=== PATIENT | male | born 1995 | race Caucasian/White ===

== ENCOUNTER 2017-02-21 02:19 | Emergency (ER) | payer OTHER ==
[2017-02-21 02:23] VITALS: BP 148/91
[2017-02-21] MEDS ORDERED: Lidocaine 2% EPI 1:200000 MPF* 20 ML VIAL ONE (02:41)
--- NOTE | 2017-02-21 02:51 | ED ---
Laceration/Wound HPI - HPI Summary HPI Summary: 21M presents with scalp laceration today. He was on a wooden swing that slipped out and hit head on the swing. denies any loc. mild headache. tetanus up to date. bleeding controlled. no nausea or vomiting. no dizziness or change in vision. - History of Current Complaint Stated Complaint: HEAD LAC Time Seen by Provider: 02/21/17 02:34 Pain Intensity: 0 - Allergy/Home Medications Allergies/Adverse Reactions: Allergies Allergy/AdvReac Type Severity Reaction Status Date / Time Peanut-containing Drug Allergy Anaphylatic Verified 02/21/17 02:23 Products Shock Tree Nuts Allergy Anaphylatic Verified 02/21/17 02:23 Shock PMH/Surg Hx/FS Hx/Imm Hx Endocrine/Hematology History: Denies: Hx Anticoagulant Therapy Cardiovascular History: Denies: Hx Hypertension Infectious Disease History: No Infectious Disease History: Denies: Traveled Outside the [place] in Last 30 Days - Family History Known Family History: Positive: Hypertension - Social History Alcohol Use: None Substance Use Type: Reports: None Smoking Status (MU): Never Smoked Tobacco Review of Systems Negative: Fever Negative: Chest Pain Negative: Shortness Of Breath Positive: Other - head laceration Positive: Headache All Other Systems Reviewed And Are Negative: Yes Physical Exam Triage Information Reviewed: Yes Vital Signs On Initial Exam: Initial Vitals Temp Pulse Resp BP Pulse Ox 100.0 F 112 20 148/91 97 02/21/17 02:21 02/21/17 02:21 02/21/17 02:21 02/21/17 02:21 02/21/17 02:21 Vital Signs Reviewed: Yes Appearance: Positive: Well-Appearing Skin: Positive: Warm, Dry, Other - 4cm by 1/4cm on posterior aspect of scalp Head/Face: Positive: Normal Head/Face Inspection, Other - no step off, racoon eyes, nye sign Eyes: Positive: Normal, EOMI, MIRTA, Conjunctiva Clear ENT: Positive: Normal ENT inspection, Pharynx normal, TMs normal Respiratory/Lung Sounds: Positive: Clear to Auscultation, Breath Sounds Present Cardiovascular: Positive: Normal, RRR Neurological: Positive: Sensory/Motor Intact, Alert, Oriented to Person Place, Time, CN Intact II-III - [place] Coma Scale Best Eye Response: 4 - Spontaneous Best Motor Response: 6 - Obeys Commands Best Verbal Response: 5 - Oriented Procedures - Laceration/Wound Repair 1 Location: head Description: Linear Anesthesia: Local, 1.0%, Epi Length, Depth and Shape: 4cm by 1/4cm Irrigated w/ Saline (ccs): 250 Laceration/Wound Explored: clean, no foreign body removed Closure: [place] #__ - 5 Diagnostics - Vital Signs Vital Signs Temp Pulse Resp BP Pulse Ox 02/21/17 02:21 100.0 F 112 20 148/91 97 - Laboratory Lab Statement: Any lab studies that have been ordered have been reviewed, and results considered in the medical decision making process. Laceration Repair Course/Dx - Course Course Of Treatment: 21M presents with scalp laceration today. He was on a wooden swing that slipped out and hit head on the swing. denies any loc. mild headache. tetanus up to date. bleeding controlled. no nausea or vomiting. no dizziness or change in vision. normal neuro exam. according to romanian CT rules no need for CT at this time. placed 5 sameera. patient understands and agrees with plan. - Differential Dx Differental Diagnoses: Laceration, Other - concussion, contusion - Clinical Impression Provider Diagnoses: Laceration of head Discharge - Discharge Plan Condition: Good Disposition: HOME Patient Education Materials: Staple Care (ED) Referrals: Non Staff,Doctor [Primary Care Provider] - Additional Instructions: Take Tylenol or ibuprofen for pain Do not scrub staple area Return to ED in 7-10 days to have sameera removed Follow up with primary within 5 days Return to ED if develop signs of infection such as fever, spreading redness, or pus or vomit or any new or worsening symptoms
== END 2017-02-21 03:00 | disposition home or self-care (01) ==
LOC: ED 02:19
DX: S01.01XA Laceration without foreign body of scalp, initial encounter (principal); W19.XXXA Unspecified fall, initial encounter; Y93.9 Activity, unspecified; Y92.9 Unspecified place or not applicable; Y99.9 Unspecified external cause status; R51 Headache
CPT/HCPCS: 99282

== ENCOUNTER 2018-02-04 17:05 | Emergency (ER) | payer OTHER ==
--- NOTE | 2018-02-04 20:35 | ED ---
Abdominal Pain/Male - HPI Summary HPI Summary: This is Fritz horta, documenting for attending Dg Forrester MD. Patient is a 22 y/o M c/o abdominal pain onset ~2300, yesterday. Pain is rated a 7/10, described as dull, and localized in the RUQ/epigastric region. Assoc. Sx : Abd pain, lower back pain, N/V. Patient was seen at [facility] and was administered tums, omeprazole, antacid with no relief, per anesthesiologist attending. Pain is worsened by deep breaths. Patient was referred to the ED following his visit to [facility]. - History of Current Complaint Chief Complaint: EDAbdPain Stated Complaint: RT UPPER QUADRANT PAIN Time Seen by Provider: 02/04/18 20:22 Hx Obtained From: Patient Onset/Duration: Sudden Onset, Lasting Days, Still Present Timing: Constant Severity Currently: Moderate Pain Intensity: 6 Pain Scale Used: 0-10 Numeric Location: Discrete At: RUQ, Epigastric, Other - R sided pleuritic pain Character: Dull Aggravating Factor(s): Deep Breaths Alleviating Factor(s): Nothing Associated Signs And Symptoms: Positive: Back Pain - Lower back, Nausea, Vomiting - Allergies/Home Medications Allergies/Adverse Reactions: Allergies Allergy/AdvReac Type Severity Reaction Status Date / Time MS Peanut-containing Drug Allergy Anaphylatic Verified 02/04/18 20:49 Products Shock [Peanut-containing Drug Products] Tree Nuts Allergy Anaphylatic Verified 02/04/18 20:49 Shock Home Medications: Home Medications Sertraline* [Zoloft*] 100 mg PO DAILY 02/04/18 [History Confirmed 02/04/18] PMH/Surg Hx/FS Hx/Imm Hx Endocrine/Hematology History: Denies: Hx Anticoagulant Therapy Cardiovascular History: Denies: Hx Hypertension - Immunization History Date of Tetanus Vaccine: current Immunizations Up to Date: Yes Infectious Disease History: No Infectious Disease History: Denies: Traveled Outside the [place] in Last 30 Days - Family History Known Family History: Positive: Hypertension - Social History Occupation: Student Lives: With Family Alcohol Use: Occasionally Substance Use Type: Reports: None Smoking Status (MU): Never Smoked Tobacco Review of Systems Positive: Abdominal Pain - RUQ/epigastric, Vomiting, Nausea Positive: Other - POS: lower back pain All Other Systems Reviewed And Are Negative: Yes Physical Exam - Summary Physical Exam Summary: VITAL SIGNS: Reviewed. GENERAL: Patient is a well-developed and nourished male who is lying comfortable in the stretcher. Patient is not in any acute respiratory distress. HEAD AND FACE: No signs of trauma. No ecchymosis, hematomas or skull depressions. No sinus tenderness. EYES: PERRLA, EOMI x 2, No injected conjunctiva, no nystagmus. EARS: Hearing grossly intact. Ear canals and tympanic membranes are within normal limits. MOUTH: Oropharynx within normal limits. NECK: Supple, trachea is midline, no adenopathy, no JVD, no carotid bruit, no c- spine tenderness, neck with full ROM. CHEST: Symmetric, no tenderness at palpation LUNGS: Clear to auscultation bilaterally. No wheezing or crackles. CVS: Regular rate and rhythm, S1 and S2 present, no murmurs or gallops appreciated. ABDOMEN: Soft, non-tender. No signs of distention. No rebound no guarding, and no masses palpated. Bowel sounds are normal. EXTREMITIES: FROM in all major joints, no edema, no cyanosis or clubbing. NEURO: Alert and oriented x 3. No acute neurological deficits. Speech is normal and follows commands. SKIN: Dry and warm Triage Information Reviewed: Yes Vital Signs On Initial Exam: Initial Vitals Temp Pulse Resp BP Pulse Ox 99 F 89 16 143/85 98 02/04/18 17:11 02/04/18 17:11 02/04/18 17:11 02/04/18 17:11 02/04/18 17:11 Vital Signs Reviewed: Yes Diagnostics - Vital Signs Vital Signs Temp Pulse Resp BP Pulse Ox 02/04/18 19:34 98.3 F 77 16 126/74 98 02/04/18 17:11 99 F 89 16 143/85 98 - Laboratory Result Diagrams: 02/04/18 21:39 02/04/18 21:39 Lab Statement: Any lab studies that have been ordered have been reviewed, and results considered in the medical decision making process. - Radiology CXR Xray Interpretation: No Acute Changes - IMPRESSION: No acute process Radiology Interpretation Completed By: ED Physician - ED physician reviewed this radiology report. Abdomen XR Xray Interpretation: No Acute Changes - IMPRESSION: No acute process Radiology Interpretation Completed By: ED Physician - ED physician reviewed this radiology report. - CT A/P CT CT Interpretation: No Acute Changes - IMPRESSION: No CT findings to correlate with patient's symptomatology. Specifically no appendicitis. CT Interpretation Completed By: ED Physician - ED physician reviewed this radiology report. - Ultrasound No standard instances Ultrasound Interpretation: No Acute Changes - IMPRESSION: No sonographic findings to correlate with patient's symptomatology. Ultrasound Interpretation Completed By: ED Physician - ED physician reviewed this radiology report. Abdominal Pain Fem Course/Dx - Course Course Of Treatment: Patient was worked up with: gallbladder US, CXR, abdomen XR - all negative. A/P CT - negative; patient will be D/C home. - Diagnoses Provider Diagnoses: Abdominal pain Discharge - Sign-Out/Discharge Documenting (check all that apply): Patient Departure - Discharge Plan Condition: Stable Disposition: HOME Patient Education Materials: Abdominal Pain (ED) Referrals: [facility]ERR[facility] [Outside] Additional Instructions: RETURN TO THE EMERGENCY DEPARTMENT FOR CHANGING OR WORSENING SYMPTOMS. FOLLOW UP WITH PCP IN 1-2 DAYS. - Attestation Statements Document Initiated by Scribe: Yes Documenting Scribe: Fritz Vasquez Provider For Whom Zeke is Documenting (Include Credential): Dg Forrester MD Scribe Attestation: Fritz Cheatham, scribed for Dg Forrester MD on 02/05/18 at 0222.
[2018-02-04] MEDS ORDERED: Ketorolac INJ* 30 MG/ML 1 ML VIAL IV PUSH ONE (21:06)
[2018-02-04] MEDS ORDERED: Metoclopramide IV* 5 MG/ML 2 ML VIAL IV SLOW PU ONE (21:06)
[2018-02-04] MEDS ORDERED: NS 0.9% 1000 ML* 1,000 ML IV ONE (21:06)
[2018-02-04 21:51] LABS: ABS Basophils 0 10^3/ul (0-0.2); ABS Eosinophils 0.1 10^3/ul (0-0.6); ABS Lymphocytes 1.4 10^3/ul (1.0-4.8); ABS Monocytes 0.9 10^3/ul (0-0.8); ABS Neutrophils 7.5 10^3/ul (1.5-7.7); ABS Nucleated RBC 0 10^3/ul; Eosinophil % 1.4 % (0-6); Hematocrit 47 % (42-52); Hemoglobin 16.4 g/dl (14.0-18.0); Lymphocyte % 13.7 % (25-47); Mean Corpuscular HGB Conc 35 g/dl (31-36); Mean Corpuscular Hemoglobin 30 pg (27-31); Mean Corpuscular Volume 88 fL (80-94); Mean Platelet Volume 8.1 um3 (7.4-10.4); Nucleated Red Blood Cells % 0; Platelet Count 171 10^3/ul (150-450); Red Blood Count 5.39 10^6/ul (4.00-5.40); Red Cell Distribution Width 13 % (10.5-15)
[2018-02-04 22:09] LABS: EGFR Non-African American 82.8 (>60)
[2018-02-04 22:30] LABS: Urine Appearance Cloudy; Urine Blood Negative (Negative); Urine Color Yellow; Urine Ketones Negative (Negative); Urine Protein Negative (Negative); Urine Urobilinogen Negative (Negative)
--- NOTE | 2018-02-04 22:47 | RAD ---
EXAM: US Abdomen Limited, Right Upper Quadrant CLINICAL HISTORY: 22 years old, male; Pain; Abdominal pain; Generalized; Patient HX: Abd pain/nausea/vomiting x 1 day TECHNIQUE: Real-time ultrasound of the right upper quadrant with image documentation. COMPARISON: No relevant prior studies available. FINDINGS: Liver: Normal liver echogenicity and size with no focal lesions. Normal hepatopetal portal vein flow. No intrahepatic bile duct dilation. Gallbladder: No gallstones, wall thickening, pericholecystic fluid, or sonographic Syed's sign. Common bile duct: CBD measures 0.2 cm. Pancreas: Pancreatic head through proximal tail are well visualized showing no focal lesions or main ductal dilation. Distal tail is shadowed by overlying bowel gas. Right kidney: Right kidney measures 11.7 x 6.6 x 3.6 cm (145 cc). No solid cortical lesions, calculi, or pelvocaliectasis. Aorta: Non-atherosclerotic normal caliber aorta. IMPRESSION: No sonographic findings to correlate with patient's symptomatology.
[2018-02-04] MEDS ORDERED: Iohexol 300* (CONTRAST) 10 ML SDV IV ONE (23:25)
--- NOTE | 2018-02-05 00:27 | RAD ---
EXAM: CT Abdomen and Pelvis With Intravenous Contrast CLINICAL HISTORY: 22 years old, male; Pain; Abdominal pain; Flank; Right; Additional info: Abd pain TECHNIQUE: Axial computed tomography images of the abdomen and pelvis with intravenous contrast. All CT scans at this facility use at least one of these dose optimization techniques: automated exposure control; mA and/or kV adjustment per patient size (includes targeted exams where dose is matched to clinical indication); or iterative reconstruction. Coronal and sagittal reformatted images were created and reviewed. CONTRAST: 137 mL of OMNI 300 administered intravenously. COMPARISON: GB US GALL BLADDER 02/04/2018 9:28 PM FINDINGS: Lung bases: Normal. No mass. No consolidation. ABDOMEN: Liver: Normal. No masses. Portal and hepatic veins are patent. Gallbladder and bile ducts: Normal. No radiopaque calculi. No ductal dilation. Pancreas: Normal. No mass. No ductal dilation. Spleen: Normal. No splenomegaly. Adrenals: Normal. No mass. Kidneys and ureters: Normal. No solid mass. Stomach and bowel: Incompletely distended grossly normal stomach. Normal caliber small bowel. No colonic masses or segmental wall thickening. PELVIS: Appendix: No dilation or periappendiceal inflammation. Bladder: Thin-walled bladder with no focal nodularity, perivesicular stranding, or calcifications. Reproductive: Normal sized prostate. Normal seminal vesicles. ABDOMEN and PELVIS: Intraperitoneal space: Normal. No pneumoperitoneum. No ascities. Bones/joints: No fractures. No suspicious bone lesions. Soft tissues: Normal. No hernias. Vasculature: Normal caliber aorta with no evidence of dissection or rupture. Patent IVC. Lymph nodes: Normal. No enlarged lymph nodes. IMPRESSION: No CT findings to correlate with patient's symptomatology. Specifically no appendicitis.
[2018-02-05 01:07] VITALS: BP 132/58
--- NOTE | 2018-02-05 08:11 | RAD ---
HISTORY: abd pain COMPARISONS: None VIEWS: Frontal supine and upright views of the abdomen. FINDINGS: BOWEL: There is a nonobstructive bowel gas pattern. CALCULI: There are no abnormal calculi. BONES AND SOFT TISSUES: There are no osseous abnormalities. OTHER FINDINGS: The lung bases are clear. There is no subphrenic gas. IMPRESSION: NONOBSTRUCTIVE BOWEL GAS PATTERN. R1
--- NOTE | 2018-02-05 08:12 | RAD ---
HISTORY: CP COMPARISONS: None VIEWS: 3: frontal dual-energy view of the chest FINDINGS: CARDIOMEDIASTINAL SILHOUETTE: The cardiomediastinal silhouette is normal. RUPINDER: The rupinder are normal. PLEURA: The costophrenic angles are sharp. No pleural abnormalities are noted. LUNG PARENCHYMA: The lungs are clear. ABDOMEN: The upper abdomen is clear. There is no subphrenic gas. BONES AND SOFT TISSUES: No bone or soft tissue abnormalities are noted. OTHER: None. IMPRESSION: NO ACTIVE CARDIOPULMONARY DISEASE. R0
== END 2018-02-05 01:05 | disposition home or self-care (01) ==
LOC: ED 17:05
DX: R10.13 Epigastric pain (principal); M54.5 Low back pain; R11.2 Nausea with vomiting, unspecified
CPT/HCPCS: 36415; 71045; 74019; 74177; 76705; 80053; 81003; 82150; 83690; 85025; 86140; 96374; 96375; 99282; J1885; J2765; Q9967

== ENCOUNTER 2018-04-11 07:03 | Emergency (ER) | payer OTHER ==
[2018-04-11 07:17] VITALS: BP 138/85
[2018-04-11] MEDS ORDERED: Ibuprofen TAB* 600 MG PO ONE (07:25)
--- NOTE | 2018-04-11 07:30 | UC ---
Shoulder Pain HPI - HPI Summary HPI Summary: 22-year-old male comes in with a chief complaint of left shoulder pain. This started last night after he was wrestling with a friend. He did not feel or hear a pop. He has pain with range of motion. Rest minimizes the pain. Has not had a prior shoulder injury. Denies any neck pain chest pain or shortness of breath. No numbness or weakness. - History of Current Complaint Chief Complaint: UCUpperExtremity Stated Complaint: L SHOULDER INJURY Time Seen by Provider: 04/11/18 07:20 Pain Intensity: 8 - Allergies/Home Medications Allergies/Adverse Reactions: Allergies Allergy/AdvReac Type Severity Reaction Status Date / Time peanut Allergy Anaphylatic Verified 04/11/18 07:18 Shock Tree Nuts Allergy Anaphylatic Verified 04/11/18 07:18 Shock Home Medications: Home Medications Albuterol HFA INHALER* [Ventolin HFA Inhaler*] 1 puff INH Q4H PRN 04/11/18 [ History Confirmed 04/11/18] EPINEPHrine [Epipen] 1 unit IM ONCE PRN 04/11/18 [History Confirmed 04/11/18] Loratadine [Claritin] 10 mg PO DAILY 04/11/18 [History Confirmed 04/11/18] Montelukast Sodium 10 mg PO DAILY 04/11/18 [History Confirmed 04/11/18] PMH/Surg Hx/FS Hx/Imm Hx Psychological History: Depression Other History Of: Negative For: Anticoagulant Therapy - Surgical History Surgical History: None - Family History Known Family History: Positive: Hypertension, Diabetes - Social History Alcohol Use: Occasionally Substance Use Type: None Smoking Status (MU): Never Smoked Tobacco Review of Systems All Other Systems Reviewed And Are Negative: Yes Constitutional: Positive: Negative Skin: Positive: Negative Eyes: Positive: Negative ENT: Positive: Negative Respiratory: Positive: Negative Cardiovascular: Positive: Negative Gastrointestinal: Positive: Negative Motor: Positive: Decreased ROM - Left Shoulder Neurovascular: Positive: Negative Musculoskeletal: Positive: Other: - see hpi Neurological: Positive: Negative Psychological: Positive: Negative Is Patient Immunocompromised?: No Physical Exam Triage Information Reviewed: Yes Appearance: Well-Appearing, Well-Nourished, Pain Distress - Mild pain distreaa with ROM of left shoulder Vital Signs: Initial Vital Signs Temp 99.2 F 04/11/18 07:13 Pulse 98 04/11/18 07:13 Resp 18 04/11/18 07:13 BP 138/85 04/11/18 07:13 Pulse Ox 97 04/11/18 07:13 Vital Signs Reviewed: Yes Eye Exam: Normal Eyes: Positive: Conjunctiva Clear Neck exam: Normal Neck: Positive: Supple, Nontender Respiratory: Positive: Chest non-tender, Lungs clear, Normal breath sounds, No respiratory distress, No accessory muscle use Cardiovascular: Positive: RRR Musculoskeletal: Positive: Other: - Patient is tender to palpation in the left shoulder joint. He has normal radial pulses normal capillary refill in the arms no sensation deficits in the arms. Fingers wrists elbows have full range of motion and full strength. Shoulder extension on the right is 180 left is 45 . Shoulder abduction on the right is 170 on the left is 45. Internal rotation on the right is T 10 on the left is L3. Neurological Exam: Normal Neurological: Positive: Alert, Muscle Tone Normal Psychological Exam: Normal Psychological: Positive: Age Appropriate Behavior Skin Exam: Normal Shoulder Course/Dx - Course Course Of Treatment: Order Information: SHOULDER LEFT 2+ VWS. Accession Number : [id number]. CPT: 44980. HISTORY: pain s/p injury 04/10/18. COMPARISONS: None. VIEWS: 4 , Frontal internal rotation, external rotation, outlet, and axillary views of the. left shoulder. FINDINGS: BONE DENSITY: Normal. BONES : There is no displaced fracture. JOINTS: There is no arthropathy. ALIGNMENT: There is no dislocation. SOFT TISSUES: Unremarkable. OTHER FINDINGS: None. IMPRESSION: NO ACUTE OSSEOUS INJURY. IF SYMPTOMS PERSIST, RECOMMEND REPEAT IMAGING. . < Electronically signed by Juan Peep MD in OV> 04/11/18 0750. I discussed the x-ray with the x-ray with the patient. There is no fracture dislocation seen. I suspect shoulder sprain or potential rotator cuff injury. At this time were not start with a sling to be used as needed. I showed the patient some range of motion exercises for the shoulder. Lymph nodes not keep the sling on continuously needs to take his arm out to keep his range of motion. The overall plan is ice range of motion ibuprofen and then if not improved completely improved in a couple of days follow-up with [facility] or sports medicine. - Differential Dx/Diagnosis Provider Diagnoses: LEFT SHOULDER STRAIN Discharge - Sign-Out/Discharge Documenting (check all that apply): Patient Departure All imaging exams completed and their final reports reviewed: Yes - Discharge Plan Condition: Stable Disposition: HOME Patient Education Materials: Shoulder Sprain (ED), Rotator Cuff Injury (ED), Early Postoperative or Post Injury Shoulder Exercises (ED) Referrals: [facility] [Provider Group] Esvin Pride [Medical Doctor] - Glen Hunt MD [Medical Doctor] - Additional Instructions: FOLLOW UP WITH [facility] OR SPORTS MEDICINE IF NOT COMPLETELY IMPROVED. TAKE IBUPROFEN 600MG EVERY 6 HOURS NEEDED. DO THE SHOULDER RANGE OF MOTION EXERCISES TO HELP AVOID FROZEN SHOULDER. GET RECHECKED FOR ANY WORSENING OF YOUR CONDITION OR QUESTIONS OR CONCERNS. - Billing Disposition and Condition Condition: STABLE Disposition: Home
== END 2018-04-11 08:20 | disposition home or self-care (01) ==
LOC: UCEAST 07:03
DX: S46.912A Strain of unspecified muscle, fascia and tendon at shoulder and upper arm level, left arm, initial encounter (principal); Z91.018 Allergy to other foods; Z91.010 Allergy to peanuts; X58.XXXA Exposure to other specified factors, initial encounter; Y93.72 Activity, wrestling; Y92.9 Unspecified place or not applicable
CPT/HCPCS: 99212; A9270-GY; G0463